=== PATIENT | male | born 1990 | race Caucasian/White ===

== ENCOUNTER 2021-08-16 01:39 | Emergency (ER) | payer MEDICAID ==
[~2021-08-16] VITALS: Ht 185.4 cm; Wt 80.0 kg
[2021-08-16] MEDS ORDERED: IBUPROFEN 600MG TABLET PO ONE (02:15)
[2021-08-16] MEDS ORDERED: ACETAMINOPHEN 325MG TABLET PO ONE (02:15)
[2021-08-16] MEDS ORDERED: NAPR-1176 MT (04:07)
[2021-08-16] MEDS ORDERED: TOPUD MT (04:07)
[2021-08-16 04:18] VITALS: BP 114/69
== END 2021-08-16 04:20 | disposition home or self-care (01) ==
LOC: ER 01:39
DX: R07.81 Pleurodynia (principal); V49.49XA Driver injured in collision with other motor vehicles in traffic accident, initial encounter; Y93.89 Activity, other specified; Y92.89 Other specified places as the place of occurrence of the external cause; Y99.8 Other external cause status
CPT/HCPCS: 71101; 99283